=== PATIENT | male | born 1955 | race Caucasian/White ===

== ENCOUNTER 2017-08-11 13:11 | Day surgery (SDC) | payer OTHER ==
[2017-08-11] MEDS ORDERED: PROPOFOL 60 ML (15:26)
[2017-08-11] MEDS ORDERED: LIDOCAINE 2% (SDV) 5 ML INJ (15:26)
== END 2017-08-11 16:01 | disposition home or self-care (01) ==
LOC: GIL 13:11
DX: Z12.11 Encounter for screening for malignant neoplasm of colon (principal)
CPT/HCPCS: 45378